=== PATIENT | female | born 1985 | race African-American/Black ===

== ENCOUNTER 2017-01-09 04:52 | Emergency (ER) | payer MEDICAID ==
[~2017-01-09] VITALS: Ht 167.6 cm; Wt 65.8 kg
[2017-01-09] MEDS ORDERED: CEPHALEXIN 250 MG CAP PO ONE (07:00)
[2017-01-09] MEDS ORDERED: IBUPROFEN 600 MG TAB PO ONE (07:00)
[2017-01-09 07:28] VITALS: BP 119/72
== END 2017-01-09 10:23 | disposition home or self-care (01) ==
LOC: ER 04:57
DX: J40 Bronchitis, not specified as acute or chronic (principal); R07.0 Pain in throat
CPT/HCPCS: 70360

== ENCOUNTER 2018-04-29 21:49 | Emergency (ER) | payer MEDICAID ==
[~2018-04-29] VITALS: Ht 165.1 cm; Wt 72.6 kg
[2018-04-29 23:13] LABS: Basophils # (auto) 0.1 uL; Eosinophils # (auto) 0.3 uL; Hemoglobin 9.8 g/dL (12.2-16.2); Mean Corpuscular Volume 79.1 fL (80.0-100.0); White Blood Cell 9.3 10^3/uL (4.4-10.8)
[2018-04-29 23:14] LABS: Basophils % (auto) 0.8 % (0.0-2.0); Eosinophils % (auto) 2.8 % (0.0-7.0); Hematocrit 29.9 % (36.0-46.0); Lymphocytes # (auto) 3.7 uL; Lymphocytes % (auto) 39.8 % (10.0-50.0); Mean Corpuscular Hgb Conc. 32.8 g/dL (32.0-36.0); Monocytes # (auto) 0.8 uL; Monocytes % (auto) 8.8 % (0.0-12.0); Neutrophils # (auto) 4.5 uL; Neutrophils % (auto) 47.8 % (37.0-80.0); Platelet Count (auto) 212 10^3/uL (140-450); Red Blood Cells 3.78 10^6/uL (4.0-5.20); Red Cell Distribution Width 18.2 % (11.8-14.3)
[2018-04-29 23:23] LABS: Albumin 3.4 g/dL (3.4-5.0); BUN/Creatinine Ratio 14.6; Calcium 8.5 mg/dL (8.5-10.1); Potassium 4.1 mmol/L (3.5-5.1)
[2018-04-29 23:25] LABS: Bilirubin, Total 0.1 mg/dL (0.2-1.0); Total Protein 7.4 g/dL (6.4-8.2)
[2018-04-29 23:31] LABS: Urine Bacteria NONE SEEN /hpf (None Seen); Urine Blood Negative /uL (Negative); Urine WBC 1 /hpf (0 - 5)
[2018-04-30 05:30] VITALS: BP 119/70
[2018-04-30] MEDS ORDERED: KETOROLAC TROMETH 60MG/2ML VIAL IM ONE (07:15)
== END 2018-04-30 10:20 | disposition home or self-care (01) ==
LOC: ER 21:49
DX: N63.0 Unspecified lump in unspecified breast (principal); D64.9 Anemia, unspecified
CPT/HCPCS: 36415; 76642; 80053; 81001; 81025; 84484; 85025; 93005; 96372; 99285; J1885